=== PATIENT | male | born 1950 | race Caucasian/White ===

== ENCOUNTER → 2016-08-02 | Outpatient (CLI) | payer OTHER | LOC: FIMAGING 10:28 | PROVIDERS: ATTEND Orthopaedic Surgery Orthopaedic Surgery of the Spine | DX: S33.110A Subluxation of L1/L2 lumbar vertebra, initial encounter (principal); S33.120A Subluxation of L2/L3 lumbar vertebra, initial encounter; S33.140A Subluxation of L4/L5 lumbar vertebra, initial encounter; M89.38 Hypertrophy of bone, other site ==